=== PATIENT | female | born 1930 | race Caucasian/White ===

== ENCOUNTER 2016-08-20 13:08 | Emergency (ER) | payer BC | END 2016-08-20 18:37 | disposition home or self-care (01) | LOC: ER 13:08 | DX: R20.9 Unspecified disturbances of skin sensation (principal); I10 Essential (primary) hypertension; E78.5 Hyperlipidemia, unspecified; Z86.73 Personal history of transient ischemic attack (TIA), and cerebral infarction without residual deficits; Z79.82 Long term (current) use of aspirin; Z79.899 Other long term (current) drug therapy; Z91.041 Radiographic dye allergy status | CPT/HCPCS: 36415; 96374; 96375; J0360 ==